=== PATIENT | female | born 2000 | race African-American/Black ===

== ENCOUNTER 2019-10-05 18:13 | Emergency (ER) | payer OTHER, BC ==
[~2019-10-05] VITALS: Ht 170.2 cm; Wt 52.6 kg
[2019-10-05 19:43] VITALS: BP 104/67; Ht 170.2 cm; Wt 52.6 kg
== END 2019-10-05 22:32 | disposition home or self-care (01) ==
LOC: ED 18:13
DX: S39.012A Strain of muscle, fascia and tendon of lower back, initial encounter (principal); S40.022A Contusion of left upper arm, initial encounter; V49.9XXA Car occupant (driver) (passenger) injured in unspecified traffic accident, initial encounter; Y93.89 Activity, other specified; Y92.89 Other specified places as the place of occurrence of the external cause; Y99.8 Other external cause status